=== PATIENT | female | born 1965 ===

== ENCOUNTER 2022-10-27 05:48 | Day surgery (SDC) | payer OTHER ==
[~2022-10-27] VITALS: Ht 160 cm; Wt 68.0 kg
[~2022-10-27 05:48] MED LIST: CRESTOR10 MG PO
== END 2022-10-27 10:55 | disposition home or self-care (01) ==
LOC: CIR.AMB 05:48
PROVIDERS: ATTEND Orthopaedic Surgery Hand Surgery
DX: G56.02 Carpal tunnel syndrome, left upper limb (principal); Z20.822 Contact with and (suspected) exposure to COVID-19